=== PATIENT | female | born 1950 | race Caucasian/White ===

== ENCOUNTER 2022-02-08 12:09 | Outpatient (CLI) | payer MEDICARE, MEDICAID, SELFPAY ==
--- NOTE | 2022-02-08 | ECG_ITS ---
Measurements Intervals [place] Rate: 80 P: 55 OK: 185 QRS: -8 QRSD: 80 T: 30 QT: 341 QTc: 394 Interpretive Statements SINUS RHYTHM DELAYED R-WAVE PROGRESSION LEFTWARD AXIS BORDERLINE ECG NO PREVIOUS ECG AVAILABLE FOR COMPARISON Electronically Signed On 02-08-2022 17:11:34 CDT by Lewis Ryan M.D.
[2022-02-08 13:02] LABS: Hematocrit 43.2 % (37.0-47.0)
[2022-02-08 13:11] LABS: Albumin Level 4.8 g/dL (3.5-5.1); Estimated Glomerular Filt Rate > 60; Glucose 109 mg/dL (65-110)
[2022-02-08 13:46] LABS: Hemoglobin A1C 5.7 % (<5.7)
== END 2022-02-08 12:10 | disposition home or self-care (01) ==
PROVIDERS: PCP Family Medicine; Referring Provider Internal Medicine Medical Oncology; Visit Provider Orthopaedic Surgery
DX: M17.12 Unilateral primary osteoarthritis, left knee (principal); Z01.818 Encounter for other preprocedural examination; R94.31 Abnormal electrocardiogram [ECG] [EKG]
CPT/HCPCS: 36415; 82040; 82565; 82947; 83036; 85014; 85018; 93005

== ENCOUNTER 2022-03-24 13:49 | Outpatient (CLI) | payer MEDICARE, MEDICAID, SELFPAY ==
[2022-03-24 15:13] LABS: Basophils Absolute Auto 0.1 K/mm3 (0.0-0.1); Basophils Percent Auto 0.9 % (0.2-1.2); Eosinophils Absolute Auto 0.1 K/mm3 (0-0.3); Eosinophils Percent Auto 1.6 % (0-4.4); Hematocrit 43.1 % (37.0-47.0); Hemoglobin 13.7 g/dL (12.0-15.0); Immature Granulocyte Absolute 0.03 K/mm3 (0.00-0.031); Immature Granulocyte Percent A 0.4 % (0-0.5); Lymphocytes Absolute Auto 2.05 K/mm3 (0.9-3.2); Lymphocytes Percent Auto 25.7 % (18.3-44.2); Mean Corpuscular HGB Conc 31.8 g/dl (32-36); Mean Corpuscular Hemoglobin 30.7 pg (26-34); Mean Corpuscular Volume 96.6 fl (80-100); Mean Platelet Volume 10.4 fl (7.4-10.4); Monocytes Absolute Auto 0.7 K/mm3 (0.1-0.6); Monocytes Percent Auto 8.7 % (2.6-8.5); Neutrophils Percent Auto 62.7 % (45.5-73.1); Platelet Count Result 336 k/mm3 (150-375); Red Blood Count 4.46 M/mm3 (4.2-5.4); Red Cell Distribution Width 12.6 % (11.5-14.5)
[2022-03-24 15:22] LABS: Albumin Level 4.8 g/dL (3.5-5.1); Estimated Glomerular Filt Rate > 60; Glucose 100 mg/dL (65-110)
[2022-03-24 16:43] LABS: Urine Cotinine NEGATIVE
== END 2022-03-24 13:50 | disposition home or self-care (01) ==
LOC: ANHSURGERY 13:53
PROVIDERS: PCP Family Medicine; Visit Provider Orthopaedic Surgery
DX: M17.12 Unilateral primary osteoarthritis, left knee (principal); Z01.818 Encounter for other preprocedural examination
CPT/HCPCS: 80307; 82040; 82565; 82947; 85025; 87081

== ENCOUNTER 2022-04-19 00:05 | Day surgery (SDC) | payer MEDICARE, MEDICAID, SELFPAY ==
--- NOTE | 2022-03-24 13:47 | PC.NURSE ---
Report to the Outpatient Waiting Room, entrance under the green pavilion located off [facility], at time _0600_ on date _04/19/22_. OR Time: _0730_. PACK A SMALL OVERNIGHT BAG AND LEAVE IN THE CAR - You and your visitor will be asked a series of questions to screen for COVID 19 for your protection. - Only one visitor is allowed at this time. VISITING HOURS 10AM-8PM, USE MAIN HOSPITAL ENTRANCE # 1 - The patient visitor is requested to leave or wait in car when not with patient. - A mask is required within the hospital. Patients may have clear liquids (water, carbonated beverages, clear teas, apple juice) until 3 hours prior to surgery (0430 AM) with a maximum of 20 ounces. - No food from midnight until time of surgery Take the following medications with a SIP of water the morning of surgery: _LEVOTHYROXINE, METOPROLOL, VENLAFAXINE_ Medications to discontinue per DR. SAUCEDO - ASPPIRIN 7 DAYS PRIOR TO SURGERY, Date to take last dose 04/11/22_ Medications to discontinue per ANESTHESIA - MULTIVITAMIN, VITAMIN B12, PROBIOTIC 3 DAYS PRIOR TO SURGERY, Date to take last dose 04/15/22 Please no make-up, nail georgian, hairspray, perfume, deodorant, or body powder the day of surgery. No jewelry (including any body piercings) or valuables the day of surgery, leave them at home. Please take a shower or bath the night before, or the morning of, surgery with an antibacterial soap. Wear comfortable, loose fitting clothing. - Jewelry must be removed prior to entering the operating room. Rings and piercings that are not removed may be cut off. - The hospital will not accept responsibility for valuables. - Please leave all valuables, including medications, at home the day of surgery. If you are going home after surgery, a licensed truck driver helper must drive you home. - NO public transportation without another adult. - We recommend that an adult stay with you for 24 hours following discharge. - We also recommend that you do not drive, make important decision, drink alcoholic beverages, or take any drugs that were not prescribed by your health care provider for at least 24 hours after your discharge time. Follow any additional instructions given to you from your DR. SAUCEDO. TOTAL JOINT CLASS 04/06/22 @ [address] [place] [address] LOWER LEVEL USE MAIN ENTRANCE # 1 If you or anyone in your household have experienced Covid symptoms in the week prior to your surgery, please notify your surgeon or the nurse liaison at the phone number below for possible testing. Instructions given to ___PT & DAUGHTER (HUMERA)__and asked if any additional questions and then verbalized understanding. Patient advised to call surgeon office or pre surgery nurse liaison [phone] if any additional questions.
[2022-03-24 14:07] VITALS: BP 164/80; PULSE 88; RESP 20; TEMP 36.5; O2SAT 94; BMI 35.2
[2022-04-19] VITALS (15 sets, daily range): BP systolic 106–140; BP diastolic 63–93; PULSE 75–85; RESP 10–22; TEMP 36.1–36.9; O2SAT 88–97
--- NOTE | ~2022-04-19 | XR_ITS ---
EXAMINATION: XR knee LT 2V DATE: 04/19/2022 09:44 INDICATION: Total left knee arthroplasty. Postop. TECHNIQUE: 2 views of left knee were obtained. COMPARISON: Left knee radiographs 01/20/2022 FINDINGS: There is a total left knee arthroplasty with patellar resurfacing in near-anatomic alignmen t. No fracture. There is gas in the knee joint and soft tissues, consistent with recent surgery. IMPRESSION: 1. Total left knee arthroplasty in near-anatomic alignment. Reviewed, dictated and finalized at location A.
[2022-04-19] MEDS: LACTATED RINGERS 1,000 ML 30 ML IV CONT ×2 (06:30→09:34)
[2022-04-19] MEDS: ACETAMINOPHEN 500 MG TABLET 1000 MG PO (06:35)
[2022-04-19] MEDS: TRANEXAMIC ACID 1,000MG/ISO100 1,000 MG/100 ML BAG 200 MG IVPB (06:36)
--- NOTE | 2022-04-19 06:51 | WPDANESEPPF ---
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 Patient Data Age: 71 Gender: F Height: 1.6 m Weight: 90.2 kg Last Vital Signs Temp 36.5 C 03/24/22 14:07 Pulse 88 03/24/22 14:07 Resp 20 03/24/22 14:07 BP 164/80 H 03/24/22 14:07 Pulse Ox 94 03/24/22 14:07 O2 Del Method Room Air 03/24/22 14:07 Allergies Allergy/AdvReac Type Severity Reaction Status Date / Time adhesive tape AdvReac SKIN Verified 03/24/22 14:11 IRRITATION & BLISTERS Home Medications Medication Instructions Recorded Confirmed Type aspirin 81 mg tablet,delayed 81 mg PO QAM 01/06/22 03/24/22 History release (Adult Aspirin Regimen) levothyroxine 137 mcg capsule 137 mcg PO QAM 01/06/22 03/24/22 History (Tirosint) venlafaxine 150 mg 150 mg PO QAM 01/06/22 03/24/22 History capsule,extended release 24 hr metoprolol succinate 25 mg 12.5 mg PO QAM 01/13/22 03/24/22 History tablet,extended release 24 hr pantoprazole 40 mg tablet,delayed 40 mg PO QAM 01/13/22 03/24/22 History release acetaminophen 650 mg 650 mg PO Q12H PRN Pain 01/20/22 03/24/22 History tablet,extended release (Tylenol Arthritis Pain) levothyroxine 150 mcg capsule 150 mcg PO QAM 01/20/22 03/24/22 History multivitamin 1 tablet PO DAILY 01/20/22 03/24/22 History rosuvastatin 10 mg tablet 10 mg PO QAM 01/20/22 03/24/22 History Lactobacillus acidoph-L.bulgaricus 1 cap PO QAM 03/24/22 03/24/22 History capsule cyanocobalamin (vitamin B-12) 2,500 mcg sublingual QAM 03/24/22 03/24/22 History 2,500 mcg sublingual tablet cyclobenzaprine 5 mg tablet 5 mg QAM 03/24/22 03/24/22 History Patient hx anesthesia problems: none Family hx anesthesia problems: none Results Review: All pre-operative results and documents have been reviewed as part of the pre-operative evaluation. [facility] Past Medical History Medical History (Updated 04/19/22 @ 06:51 by Anthony Alford MD) Arthritis of both knees Fibromyalgia Gait disturbance Heart attack (~2018) High cholesterol History of stress test (~2020) History of ulcer disease Hypertension Hypothyroidism Surgical History Surgical History H/O arthroscopic knee surgery (~06/19/15) left knee H/O: hysterectomy (~1999) History of appendectomy (~1957) History of hip surgery (~06/08/21) Right total hip History of vein stripping (~2013) Lt Leg Hx of cholecystectomy (~1998) Family History Family History Other Arthritis Cancer Heart disease Osteoarthritis Social History Social History Smoking status: Never smoker Second hand tobacco smoke exposure: No Additional smoking assessment comments: PT DENIES ALL FORMS OF TOBACCO USE Alcohol intake: never Substance use: never Substance use type: does not use Living arrangements: with family Spiritual care concerns: No Anes - Eval Final PreProcedure Day of Procedure 04/19/22 06:51 Patient weight: obese Heart: regular rate and rhythm Lungs: clear to auscultation Airway: Mallampati scale class II Neurological: alert and oriented ASA classification: III Emergent: no Anesthetic plan: proceed Anesthesia type and monitoring: general LMA Results Review: All pre-operative results and documents have been reviewed as part of the pre-operative evaluation. Informed Consent: The patient's anesthetic plan and its attendant risks and benefits were discussed with the patient/family/POA. Questions were solicited and answers provided to the satisfaction of the patient/family/POA.
--- NOTE | 2022-04-19 07:17 | WPDHPUPDATE1 ---
History and Physical Update Update Date/Time: 04/19/22 07:17 History and Physical has been reviewed, including an updated exam of the patient. There are NO changes in the patient's condition. Risks, benefits, and alternatives have been discussed and questions answered. Patient agrees to proceed with procedure.
[2022-04-19] MEDS: ceFAZolin 2 GM/D5W 50 ML 2 GM/50 ML BAG IVPB ×3 (07:27→22:58)
--- NOTE | 2022-04-19 07:30 | WPDANESPNB ---
Anes - Peripheral Nerve Block Date/Time: 04/19/22 07:30 I have discussed with the patient/family/POA the placement of a peripheral nerve block for post-operative pain management, including associated risks, benefits, complications, and side effects. Alternative methods of post-operative analgesia were detailed. Questions were solicited and answers provided to the satisfaction of the patient/family/POA. Time-Out: A pre-procedural Time-Out was completed immediately before starting the procedure and confirmed: Patient Identification, Site, Procedure, Patient Position and the Availability of Requisite Equipment. Clinical Indications: Acute post-operative pain management requested by the operative surgeon. Nerve Block Insertion Note Anes-nerve block: adductor canal left Skin prep: chlorhexidine Needle: 22 gauge, stimulating, insulated echogenic needle. Needle length: 80 mm Technique: ultrasound Technique comment: 100 fent Injectate: bupivacaine 0.5% with epi 5 mcg/ml (no epi 30 ml) and dexamethasone (mg) (4) Observations: tolerated well Complications: none Procedure start time:: 715 Procedure end time:: 722
--- NOTE | 2022-04-19 09:29 | P.OP_ITS ---
Procedure Note - Detailed Date of Procedure 04/19/22 Pre-op Diagnosis Prim O.A. Lt Knee Post-op Diagnosis Same Procedure Performed Total knee arthroplasty, left. Surgeon Kaushik Pascual MD Dynamometer Mechanic Radha Guthrie PA-C Anesthesia General and Regional (subsartorial block) Description of Procedure The patient was brought to the operating room. A general anesthetic was administered. The leg was prepped and draped in the usual sterile fashion. The limb was elevated and the tourniquet inflated to 300 mmHg during initial exposure, and cementation. A longitudinal incision was created along the medial border of the patella and patellar tendon, and a trivector approach to the knee was performed. A mild medial release was taken. The knee was then flexed. The osteophytes were carefully removed. The intramedullary guide was placed in the femoral canal. The distal femoral resection was then taken with the oscillating saw. The collateral ligaments were carefully protected. The tibia was carefully exposed. The jig was applied, and the proximal tibia was resected according to preoperative plan. The knee was balanced in extension. Appropriate releases were taken where needed. The anterior cruciate ligament and meniscal remnants were removed. The posterior cruciate ligament was preserved. The patella was measured. Patellar resection was carried out with the oscillating saw. The lug holes drilled. The femur was sized and rotation assessed using a combination of gap balancing, posterior referencing, and the AP axis. The 4 in 1 cutting block was used to finish the femoral cuts after equal gaps were assured. The osteophytes were carefully removed from the back of the knee. The knee was copiously irrigated with antibiotic solution periodically throughout the procedure. The meniscal remnants were removed. The spacer block was used to confirm equal flexion and extension gaps. No further releases were needed. The tibia was sized and broached. The bony surfaces were prepared for cementing with pulsatile lavage. The real tibial and femoral and patellar components were cemented into position. Excess cement was carefully removed. Patellar tracking was carefully assessed. No additional releases were required. Dilute sterile Betadine soak performed for three minutes. Copious irrigation then performed. The wound was closed with #1 Vicryl suture, #2, 2-0, and 3-0 barbed suture, followed by Steri-Strips. A sterile bulky dressing was applied. Meticulous hemostasis was maintained throughout the procedure. The bipolar cautery device was used. The pain relieving mixture was injected into the periarticular tissues during the procedure. There were no complications. The patient was extubated and brought to the recovery room in stable condition after the application of sterile dressing with Matthew bandage. Implants [place] Triathlon knee system, low profile cemented tibia size 3, cemented cruciate retaining femoral component size 3 ,and an 9 mm cruciate retaining polyethylene insert. 35mm asymmetric all polyethylene patella component. Estimated Blood Loss 200 Drains No Pathology None sent Complications No immediate complications Condition Stable Disposition PACU [facility] Billing Surgery - Charge Forward: Surgery Billing
--- NOTE | 2022-04-19 09:45 | SUR.PHASEI ---
0940 2 VIEWS OF XRAY TAKEN OF LT KNEE IN PACU
--- NOTE | 2022-04-19 11:01 | ADMGEN ---
This patient, Paul Rogel, was admitted to Medical Room 256-. Patient/family oriented to hospital policies and general routines including ID bracelet, bed and alarms, visiting hours, pain management, procedures, bathroom and other care routines, personal items, smoking policy, room service/diet, and visiting hours. Information on how to activate the Rapid Response Team has been discussed. Patient/Family are encouraged to report perceived risks to care and to ask questions if they do not understand what they are told or what they should do.
[2022-04-19] MEDS: oxyCODONE HCL (*CRX) 5 MG TAB IR 10 MG PO (12:26)
[2022-04-19] MEDS: SENNA/DOCUSATE SODIUM TABLET 2 TAB PO (17:28)
[2022-04-19] MEDS: oxyCODONE HCL (*CRX) 5 MG TAB IR PO (17:30)
[2022-04-20 04:27] VITALS: BP 120/62; PULSE 78; RESP 20; TEMP 36.2; O2SAT 95
[2022-04-20 04:54] VITALS: O2SAT 93
[2022-04-20] MEDS: oxyCODONE HCL (*CRX) 5 MG TAB IR 10 MG PO ×2 (05:43→16:24)
[2022-04-20] MEDS: LEVOTHYROXINE SODIUM 112 MCG TABLET PO (06:29)
[2022-04-20] MEDS: LEVOTHYROXINE SODIUM 25 MCG TABLET PO (06:29)
[2022-04-20] MEDS: ceFAZolin 2 GM/D5W 50 ML 2 GM/50 ML BAG IVPB (06:30)
--- NOTE | 2022-04-20 09:18 | WPDANESPN ---
Anes - Prog Note Post-Op Date/Time: 04/20/22 09:18 Cardiovascular status: normal Respiratory status: normal Airway patency: baseline Mental status: baseline Post-Op hydration status: normal Vital Signs: Last Vital Signs Temp 36.2 C L 04/20/22 04:27 Pulse 78 04/20/22 04:27 Resp 20 04/20/22 04:27 BP 120/62 04/20/22 04:27 Pulse Ox 93 04/20/22 04:54 O2 Del Method Room Air 04/20/22 04:54 O2 Flow Rate 1 04/19/22 11:40 Pain Score (VAS): 2/10 I/O: Intake & Output 04/19/22 04/20/22 04/20/22 23:59 07:59 15:59 Intake Total 490 340 Output Total 100 1200 Balance 390 -860 Post-procedural complaints: nausea (mild, treatment effective) Patient Feedback: Patient satisfied with anesthetic care.
[2022-04-20] MEDS: predniSONE 5 MG TABLET PO (09:25)
[2022-04-20] MEDS: ASPIRIN 81 MG ENTERIC TABLET PO (09:25)
[2022-04-20 09:26] VITALS: PULSE 80
[2022-04-20] MEDS: SENNA/DOCUSATE SODIUM TABLET 2 TAB PO ×2 (09:26→16:24)
[2022-04-20] MEDS: PANTOPRAZOLE 40 MG TABLET PO (09:26)
[2022-04-20] MEDS: ROSUVASTATIN 10 MG TABLET PO (09:26)
[2022-04-20] MEDS: METOPROLOL SUCCINATE EXT REL 12.5 MG TABCR PO (09:26)
[2022-04-20] MEDS: VENLAFAXINE HCL XR 75 MG CAP.ER.24H 150 MG PO (09:27)
--- NOTE | 2022-04-20 09:38 | PM.DS ---
DS: Admitting Diagnosis Discharge Date 04/20/22 Admitting Diagnosis OA knee Left DS: Discharge Diagnosis Discharge Diagnosis Plan Postop day 1: Left total Knee arthroplasty. Patient tolerated procedure well. No complications. Pain manageable with pain medication. No numbness or tingling. We had a lengthy discussion regarding postoperative wound care, limitations, expectations, and exercises. Patient shows good understanding. She has had initial physical therapy and is tolerating it well. DVT prophylaxis: 81 mg baby aspirin b.i.d. for 14 days. Pain medication: Percocet. Prednisone. Patient has followup appointment with Dr. Pascual in 3 weeks. DS: Summary Hospital Course Reason for hospitalization: Total knee arthroplasty Hospital Course: Patient tolerated procedure well. Has had initial PT/OT. Status at Discharge Functional status at discharge: uses cane/walker Overall status at discharge: patient is progressing back to baseline Time Spent with Patient Time attestation: Total time spent providing and/or coordinating discharge services: Exam Narrative: Overweight 71 y/o female. Resting comfortably in bed. Wearing compression socks bilaterally. Dressing intact with no drainage. Moderate swelling. Small area of ecchymosis. No erythema. No hematoma. Range of motion limited due to pain. Calf nontender. Neurologic status intact. No varicosities. Distal pulses palpable. Discharge Plan Discharge Patient Disposition: Home, Self-Care Discharge Instructions: See green instruction sheet Patient Instructions: Pain Management (DC), Precautions after Total Joint Replacement Surgery (DC), Knee Replacement (DC) Follow-up/Referrals: Radha Guthrie PA [Physician Pattern Maker Programer] - Discharge Medications: New oxycodone-acetaminophen 5-325 mg tablet 1 - 2 tablet PO Q4-6H MDD 6 PRN (Reason: pain) Qty: 30 0RF prednisone 5 mg tablet 5 mg PO DAILY 21 Days Qty: 21 0RF aspirin 81 mg tablet,delayed release (DR/EC) 81 mg PO BID 14 Days Qty: 28 0RF Continued levothyroxine 150 mcg capsule 150 mcg PO QAM multivitamin Tablet 1 tablet PO DAILY rosuvastatin 10 mg tablet 10 mg PO QAM acetaminophen [Tylenol Arthritis Pain] 650 mg tablet extended release 650 mg PO Q12H PRN (Reason: Pain) aspirin [Adult Aspirin Regimen] 81 mg tablet,delayed release (DR/EC) 81 mg PO QAM levothyroxine [Tirosint] 137 mcg capsule 137 mcg PO QAM venlafaxine 150 mg capsule,extended release 24hr 150 mg PO QAM metoprolol succinate 25 mg tablet extended release 24 hr 12.5 mg PO QAM pantoprazole 40 mg tablet,delayed release (DR/EC) 40 mg PO QAM cyanocobalamin (vitamin B-12) 2,500 mcg Tablet, Sublingual 2,500 mcg SUBLINGUAL QAM cyclobenzaprine 5 mg tablet 5 mg QAM Lactobacillus acidoph-L.bulgar Capsule 1 cap PO QAM
[2022-04-20 10:30] VITALS: BP 122/74; PULSE 85; RESP 18; TEMP 36.4; O2SAT 96
[2022-04-20] MEDS: oxyCODONE HCL (*CRX) 5 MG TAB IR PO (11:03)
[2022-04-20 14:30] VITALS: BP 136/66; PULSE 82; RESP 16; TEMP 36.3; O2SAT 95
== END 2022-04-20 17:26 | disposition home or self-care (01) ==
LOC: ANHSURGERY 05:51 → ANH2MED 10:52
PROVIDERS: PCP Family Medicine; Visit Provider Orthopaedic Surgery
PROC: (CPT 27447; principal; 2022-04-19 07:30)
DX: M17.12 Unilateral primary osteoarthritis, left knee (principal); I25.2 Old myocardial infarction; Z79.82 Long term (current) use of aspirin; E03.9 Hypothyroidism, unspecified; M25.562 Pain in left knee; M79.7 Fibromyalgia; I10 Essential (primary) hypertension; E78.00 Pure hypercholesterolemia, unspecified; R26.9 Unspecified abnormalities of gait and mobility; E66.9 Obesity, unspecified; Z68.34 Body mass index [BMI] 34.0-34.9, adult; G89.18 Other acute postprocedural pain; M79.89 Other specified soft tissue disorders; M25.462 Effusion, left knee
CPT/HCPCS: 27447; 64447; 36415; 73560; 80307; 82040; 82565; 82947; 85025; 86850; 86900; 86901; 87081; 97110; 97116; 97161; 97165; 97530; 97535; A9270; C1713; C1776; J0131; J0171; J0330; J0690; J1100; J1885; J2270; J2405; J2704; J2795; J3010; J7120; J7512